=== PATIENT | female | born 1985 ===

== ENCOUNTER 2017-01-22 17:13 | Emergency (ER) | payer MEDICAID ==
[2017-01-22 17:17] VITALS: BMI 32.4
[2017-01-22 17:20] VITALS: RESP 18; TEMP 98.7
[2017-01-22] MEDS ORDERED: Sodium Chloride 0.9% 1,000 ML IV STA (17:40)
--- NOTE | 2017-01-22 17:47 | ED PDOC ---
Arrival/HPI - General Chief Complaint: Abdominal Pain Time Seen by Provider: 01/22/17 17:39 Historian: Patient - History of Present Illness Narrative History of Present Illness (Text): 01/22/17 17:42 A 31 year old female with no significant past medical history, presents to the emergency department with 1 day duration burning upper abdominal sensation, nausea, and mild dizziness. The patient states that the pain is non- radiating. She notes associated loose bowel movements twice yesterday and one today. The patient denies fevers, chills, headache,chest pain, shortness of breath, dypnea on exertion, vomiting, hematochezia, hematemesis, mucous in stool, urinary symptoms, back/neck pain, or any other complaints. PMD: Dr. Flavia Titpon Time/Duration: Other (Yesterday) Symptom Course: Unchanged Activities at Onset: Rest, Light Context: Home Past Medical History - Provider Review Nursing Documentation Reviewed: Yes - Infectious Disease Hx of Infectious Diseases: None - Psychiatric Hx Substance Use: No - Anesthesia Hx Anesthesia: No Family/Social History - Physician Review Nursing Documentation Reviewed: Yes Family/Social History: No Known Family HX Smoking Status: Never Smoked Hx Alcohol Use: Yes Frequency of alcohol use: Socially Hx Substance Use: No Allergies/Home Meds Allergies/Adverse Reactions: Allergies No Known Allergies Allergy (Verified 01/22/17 17:17) Home Medications: Home Meds Medication Instructions Recorded Confirmed No Known Home Med 01/22/17 01/22/17 Review of Systems - Physician Review All systems were reviewed & negative as marked: Yes - Review of Systems Constitutional: absent: Fevers, Night Sweats Respiratory: absent: SOB Cardiovascular: absent: Chest Pain, CHATTERJEE Gastrointestinal: Abdominal Pain (Upper abdominal burning sensation), Stool Changes (Loose bowel movements), Nausea. absent: Vomiting, Hematochezia, Hematemesis Genitourinary Female: absent: Hematuria Musculoskeletal: absent: Back Pain, Neck Pain Neurological: Dizziness (Mild dizziness). absent: Headache Physical Exam Vital Signs Reviewed: Yes Vital Signs Temp Pulse Resp BP Pulse Ox 01/22/17 17:19 98.7 F 81 18 120/83 96 Temperature: Afebrile Blood Pressure: Normal Pulse: Regular Respiratory Rate: Normal Appearance: Positive for: Well-Appearing, Non-Toxic, Comfortable Pain Distress: None Mental Status: Positive for: Alert and Oriented X 3 - Systems Exam Head: Present: Atraumatic, Normocephalic Pupils: Present: PERRL Extroacular Muscles: Present: EOMI Conjunctiva: Present: Normal Mouth: Present: Moist Mucous Membranes Neck: Present: Normal Range of Motion Respiratory/Chest: Present: Clear to Auscultation, Good Air Exchange. No: Respiratory Distress, Accessory Muscle Use Cardiovascular: Present: Regular Rate and Rhythm, Normal S1, S2. No: Murmurs Abdomen: Present: Normal Bowel Sounds. No: Tenderness, Distention, Peritoneal Signs Back: Present: Normal Inspection Upper Extremity: Present: Normal Inspection. No: Cyanosis, Edema Lower Extremity: Present: Normal Inspection. No: Edema Neurological: Present: GCS=15, CN II-XII Intact, Speech Normal Skin: Present: Warm, Dry, Normal Color. No: Rashes Psychiatric: Present: Alert, Oriented x 3, Normal Insight, Normal Concentration Medical Decision Making ED Course and Treatment: 01/22/17 17:49 Impression: A 31 year old female presents with epigastric burning sensation, nausea, and mild dizziness. Plan: -- Pepcid -- Reglan -- IV Fluids -- Reassess and disposition Progress Notes: 01/22/17 19:38 feel s better, nausea is abated. passed po challenge. serial bowel exams binegb and nt. will be discharged on pepcid prn, reglan prn / advised pmd f/u. - Medication Orders Current Medication Orders: Discontinued Medications Famotidine (Pepcid) 20 mg IVP STAT STA Stop: 01/22/17 17:42 Last Admin: 01/22/17 18:00 Dose: 20 mg IVP Administration Document 01/22/17 18:00 GMD (Rec: 01/22/17 18:00 GMD [id number]) Charges for Administration # of IVP Administrations 1 Sodium Chloride (Sodium Chloride 0.9%) 1,000 mls @ 999 mls/hr IV .Q1H1M STA Stop: 01/22/17 18:40 Last Admin: 01/22/17 18:04 Dose: 999 mls/hr eMAR Start Stop Document 01/22/17 18:04 GMD (Rec: 01/22/17 18:04 GMD [id number]) Intravenous Solution Start Date 01/22/17 Start Time 18:04 End Date 01/22/17 End time 19:05 Total Infusion Time 61 Metoclopramide HCl (Reglan) 10 mg IVPB STAT STA Stop: 01/22/17 17:42 Last Admin: 01/22/17 18:00 Dose: 10 mg eMAR Start Stop Document 01/22/17 18:00 GMD (Rec: 01/22/17 18:00 GMD [id number]) Intravenous Solution Start Date 01/22/17 Start Time 18:00 End Date 01/22/17 End time 18:02 Total Infusion Time 2 - Scribe Statement The provider has reviewed the documentation as recorded by the Scribe Dyan Roth Provider Scribe Attestation: All medical record entries made by the Scribe were at my direction and personally dictated by me. I have reviewed the chart and agree that the record accurately reflects my personal performance of the history, physical exam, medical decision making, and the department course for this patient. I have also personally directed, reviewed, and agree with the discharge instructions and disposition Disposition/Present on Arrival - Present on Arrival Any Indicators Present on Arrival: No History of DVT/PE: No History of Uncontrolled Diabetes: No Urinary Catheter: No History of Decub. Ulcer: No History Surgical Site Infection Following: None - Disposition Have Diagnosis and Disposition been Completed?: Yes Diagnosis: Gastritis Disposition: HOME/ ROUTINE Disposition Time: 19:40 Patient Plan: Discharge Condition: FAIR Discharge Instructions (ExitCare): Gastritis (DC) Print Language: [place] Additional Instructions: Eat a bland diet and advance your diet slowly. Commencing with lots of water, and fluids ( herbal teas such as peppermint, marcia and chamomile ). Eating foods likle brothy soups/bananas/cream of cereals/ papayas/apple suace/ toast avoid meat, dairy and dairy products, coffee, liquor, beer, spicy foods. Referrals: Geneva Tipton DO [Primary Care Provider] - Follow up with primary Forms: [employer] (French)
[2017-01-22 19:47] VITALS: BP 118/70; PULSE 76; O2SAT 98
== END 2017-01-22 20:05 | disposition home or self-care (01) ==
LOC: ED 17:13
DX: K29.70 Gastritis, unspecified, without bleeding (principal)
CPT/HCPCS: 96361; 96374; 96375; 99285; J2765; J7040

== ENCOUNTER 2017-06-06 12:26 | Emergency (ER) | payer MEDICAID ==
[2017-06-06 12:27] VITALS: BMI 32.4
[2017-06-06 12:42] VITALS: TEMP 97.6; O2SAT 100
--- NOTE | 2017-06-06 12:55 | ED PDOC ---
Arrival/HPI - General Chief Complaint: Abdominal Pain Time Seen by Provider: 06/06/17 12:45 - History of Present Illness Narrative History of Present Illness (Text): 06/06/17 12:53 Patient is a 32 y/o F with hx of painful menses, presenting with menstrual cramps. She reports that she is on day 2 of her menses. She reports that the pain got severe today so she presented to the ED. Denies taking anything for the pain. Describes the pain as a b/l suprapubic cramping. Reports nausea. Denies dysuria, fever, diarrhea/constipation, vomiting. Reports that she had a miscarriage 2 months ago and this is her first menstrual period since then. When questioned about this she reports that she took a home test in April that was positive but reports that she passed a clot in later April so assumed she had miscarried. Denies visiting any doctor. Reports that she became anxious today when the pain was severe but reports that has now resolved. Past Medical History - Infectious Disease Hx of Infectious Diseases: None - Genitourinary/Gynecological Hx Genitourinary Disorders: Yes Other/Comment: RECENT MISCARRIAGE - Psychiatric Hx Psychophysiologic Disorder: Yes Hx Anxiety: Yes Hx Substance Use: Yes (CANNABIS) - Anesthesia Hx Anesthesia: No Family/Social History Family/Social History: No Known Family HX Smoking Status: Never Smoked Hx Alcohol Use: Yes Frequency of alcohol use: Socially Hx Substance Use: Yes (CANNABIS) Allergies/Home Meds Allergies/Adverse Reactions: Allergies No Known Allergies Allergy (Verified 06/06/17 12:35) Home Medications: Home Meds Medication Instructions Recorded Confirmed Phentermine HCl 1 cap PO DAILY 06/06/17 06/06/17 Review of Systems - Physician Review All systems were reviewed & negative as marked: Yes - Review of Systems Constitutional: absent: Fatigue, Weight Change, Fevers Respiratory: absent: SOB, Cough, Sputum, Wheezing Cardiovascular: absent: Chest Pain, Palpitations, Edema, Calf Pain, CHATTERJEE, Orthopnea, Syncope Gastrointestinal: Abdominal Pain, Nausea. absent: Constipation, Diarrhea, Vomiting Genitourinary Female: Vaginal Bleeding. absent: Dysuria, Frequency, Hematuria, Urine Output Changes Skin: absent: Rash Neurological: absent: Headache, Dizziness Psychiatric: absent: Anxiety, Depression Physical Exam Vital Signs Temp Pulse Resp BP Pulse Ox 06/06/17 15:40 70 18 97/61 L 100 06/06/17 12:36 97.6 F 61 16 118/70 100 Temperature: Afebrile Blood Pressure: Normal Pulse: Regular Respiratory Rate: Normal Appearance: Positive for: Well-Appearing, Non-Toxic, Comfortable Pain Distress: None Mental Status: Positive for: Alert and Oriented X 3 - Systems Exam Head: Present: Atraumatic, Normocephalic Pupils: Present: PERRL Extroacular Muscles: Present: EOMI Conjunctiva: Present: Normal Mouth: Present: Moist Mucous Membranes Neck: Present: Normal Range of Motion Respiratory/Chest: Present: Clear to Auscultation, Good Air Exchange. No: Respiratory Distress, Accessory Muscle Use Cardiovascular: Present: Regular Rate and Rhythm, Normal S1, S2. No: Murmurs Abdomen: Present: Tenderness (mild suprapubic). No: Distention, Rebound, Guarding Back: Present: Normal Inspection. No: CVA Tenderness, Midline Tenderness Upper Extremity: Present: Normal Inspection Lower Extremity: Present: Normal Inspection Neurological: Present: GCS=15, CN II-XII Intact, Speech Normal Psychiatric: Present: Alert, Oriented x 3 Medical Decision Making ED Course and Treatment: 06/06/17 13:01 Patient's test is positive. Threatened vs ectopic . Transvaginal ultrasound already ordered and nurse instructed to take patient over immediately. Labs ordered. 06/06/17 15:23 FINDINGS: UTERUS: The uterus measures 8.4 x 4.3 x 5.2 cm. There is no uterine mass. The endometrium measures 5 mm in width. There is no intrauterine gestational sac seen. There is no endometrial fluid. CERVIX: Cervix is significant for a bilobed structure with complex fluid in the left side of the cervix, 1 portion of which contains low-level echoes in the other portion of which contains echogenic material as well as low-level echoes. It is not clear whether this represents a complex nabothian cyst or several adjacent complex nabothian cysts or whether this represents blood products within the left lateral aspect of the endocervical canal. RIGHT OVARY: Measures 2.0 x 1.8 x 1.7 cm. No mass. Normal flow. LEFT OVARY: Measures 2.1 x 1.4 x 2.0 cm. No mass. Normal flow. FREE FLUID: None. OTHER FINDINGS: None. IMPRESSION: No intrauterine gestational sac identified. Questionable blood products in the left lateral aspect of the endocervical canal versus complex nabothian cyst/ cysts. 06/06/17 15:23 UA shows nitrates and leukocytes but only 2-5 wbc. Likely contaminant from blood but due to symptoms, will treat 06/06/17 15:30 Blood type O+. Bhcg 700. Had detailed conversation with mother and patient about likelihood of incomplete miscarriage and need to ensure bhcg goes to 0. Will follow-up with [facility] operator. ON reevaluation, abdomen is soft nt/nd. - Lab Interpretations Lab Results: 06/06/17 13:19 06/06/17 13:19 Lab Results 06/06/17 13:19: Blood Type O POSITIVE, Antibody Screen Negative, BBK History Checked No verified bt 06/06/17 13:19: Beta HCG, Quant 711.91 H 06/06/17 13:19: Sodium 140, Potassium 4.1, Chloride 104, Carbon Dioxide 23, Anion Gap 17, BUN 12, Creatinine 1.0, Est GFR ( Amer) > 60, Est GFR (Non- Af Amer) > 60, Random Glucose 130 H, Calcium 10.0, Total Bilirubin 0.4, AST 24, ALT 39, Alkaline Phosphatase 62, Total Protein 8.1, Albumin 4.4, Globulin 3.7, Albumin/Globulin Ratio 1.2 06/06/17 13:19: WBC 14.5 H, RBC 4.15, Hgb 12.3, Hct 37.8, MCV 91.1, MCH 29.6, MCHC 32.5, RDW 12.9, Plt Count 302, MPV 10.8, Gran % 89.1 H, Lymph % (Auto) 6.8 L, Gosper % (Auto) 3.9, Eos % (Auto) 0.1 L, Baso % (Auto) 0.1, Gran # 12.92 H, Lymph # (Auto) 1.0 L, Gosper # (Auto) 0.6, Eos # (Auto) 0.0, Baso # (Auto) 0.01 06/06/17 13:00: Urine Color Red, Urine Appearance Bloody, Urine pH 6.0, Ur Specific B[place] >= 1.030, Urine Protein >=300 H, Urine Glucose (UA) Negative, Urine Ketones Trace H, Urine Blood Large H, Urine Nitrate Positive H, Urine Bilirubin Small H, Urine Urobilinogen 1.0 H, Ur Leukocyte Esterase Negative, Urine RBC Tntc, Urine WBC 0 - 2, Ur Epithelial Cells 0 - 2, Urine Bacteria Trace - RAD Interpretation Radiology Orders: 06/06/17 12:55 OB TRANSVAGINAL [US] Stat - Medication Orders Current Medication Orders: Discontinued Medications Sodium Chloride (Sodium Chloride 0.9%) 1,000 mls @ 999 mls/hr IV .Q1H1M STA Stop: 06/06/17 14:01 Last Admin: 06/06/17 13:26 Dose: 999 mls/hr eMAR Start Stop Document 06/06/17 13:26 GMD (Rec: 06/06/17 13:26 GMD [id number]) Intravenous Solution Start Date 06/06/17 Start Time 13:26 End Date 06/06/17 End time 14:27 Total Infusion Time 61 Disposition/Present on Arrival - Present on Arrival Any Indicators Present on Arrival: No History of DVT/PE: No History of Uncontrolled Diabetes: No Urinary Catheter: No History of Decub. Ulcer: No History Surgical Site Infection Following: None - Disposition Have Diagnosis and Disposition been Completed?: Yes Diagnosis: Incomplete miscarriage, UTI (urinary tract infection), Vaginal bleeding Disposition: HOME/ ROUTINE Disposition Time: 15:31 Patient Plan: Discharge Condition: GOOD Discharge Instructions (ExitCare): Urinary Tract Infections in Adults, Ectopic , Dealing With Miscarriage, Miscarriage (DC) Additional Instructions: Your bhcg level is 700. Your ultrasound is as below. This is concerning for incomplete miscarriage. Ectopic has not been ruled out. You need to get repeat bhcg level in 48 hours. You need to follow-up with your OB within 2 days. You need to return to ED immediately with any worsening symptoms. "FINDINGS: UTERUS: The uterus measures 8.4 x 4.3 x 5.2 cm. There is no uterine mass. The endometrium measures 5 mm in width. There is no intrauterine gestational sac seen. There is no endometrial fluid. CERVIX: Cervix is significant for a bilobed structure with complex fluid in the left side of the cervix, 1 portion of which contains low-level echoes in the other portion of which contains echogenic material as well as low-level echoes. It is not clear whether this represents a complex nabothian cyst or several adjacent complex nabothian cysts or whether this represents blood products within the left lateral aspect of the endocervical canal. RIGHT OVARY: Measures 2.0 x 1.8 x 1.7 cm. No mass. Normal flow. LEFT OVARY: Measures 2.1 x 1.4 x 2.0 cm. No mass. Normal flow. FREE FLUID: None. OTHER FINDINGS: None. IMPRESSION: No intrauterine gestational sac identified. Questionable blood products in the left lateral aspect of the endocervical canal versus complex nabothian cyst/ cysts" Prescriptions: Nitrofurantoin Macrocrystals [Macrobid] 100 mg PO BID #10 cap Referrals: Mattie Beth NP [Primary Care Provider] - Follow up with primary Forms: [employer] (Monegasque)
[2017-06-06] MEDS ORDERED: Sodium Chloride 0.9% 1,000 ML IV STA (13:01)
[2017-06-06 13:12] LABS: URINE BILIRUBIN SMALL (NEGATIVE); URINE BLOOD LARGE (NEGATIVE); URINE GLUCOSE (UA) NEGATIVE (NEGATIVE); URINE LEUKOCYTE ESTERASE NEGATIVE Leu/uL (NEGATIVE); URINE PROTEIN >=300 mg/dL (<30 mg/dL)
[2017-06-06 13:15] LABS: URINE APPEARANCE BLOODY (CLEAR); URINE COLOR RED (YELLOW)
[2017-06-06 13:16] LABS: URINE BACTERIA TRACE (NEG); URINE EPITHELIAL CELLS 0 - 2 /hpf (0-5); URINE RBC TNTC /hpf (0-2); URINE WBC 0 - 2 /hpf (0-6)
[2017-06-06 13:31] LABS: BASO # 0.01 K/mm3 (0.0-2.0); BASO % 0.1 % (0.0-3.0); EOS % 0.1 % (1.5-5.0); GRAN # 12.92 (1.4-6.5); GRAN % 89.1 % (50.0-68.0); HEMOGLOBIN 12.3 g/dL (12.0-16.0); LYMPH % 6.8 % (22.0-35.0); MEAN CELL VOLUME 91.1 fl (80.0-105.0); MEAN CORPUSCULAR HEMOGLOBIN 29.6 pg (25.0-35.0); MEAN CORPUSCULAR HGB CONC 32.5 g/dl (31.0-37.0); MEAN PLATELET VOLUME 10.8 fl (7.0-11.0); MONO # 0.6 (0.1-0.6); MONO % 3.9 % (1.0-6.0); RBC 4.15 10^6/uL (3.5-6.1); RED CELL DISTRIBUTION WIDTH 12.9 % (11.5-14.5); WHITE BLOOD COUNT 14.5 10^3/ul (4.5-11.0)
[2017-06-06 13:38] LABS: ALB/GLOB RATIO 1.2 (1.1-1.8); ALBUMIN 4.4 g/dL (3.0-4.8); ALT/SGPT 39 U/L (7-56); AST/SGOT 24 U/L (14-36); BLOOD UREA NITROGEN 12 mg/dL (7-21); GFR AFRICAN-AMERICAN > 60; GFR NON-AFRICAN AMERICAN > 60
--- NOTE | 2017-06-06 15:16 | US ---
PROCEDURE: OB Pelvic Ultrasound HISTORY: suprapubic pain COMPARISON: None available. FINDINGS: UTERUS: The uterus measures 8.4 x 4.3 x 5.2 cm. There is no uterine mass. The endometrium measures 5 mm in width. There is no intrauterine gestational sac seen. There is no endometrial fluid. CERVIX: Cervix is significant for a bilobed structure with complex fluid in the left side of the cervix, 1 portion of which contains low-level echoes in the other portion of which contains echogenic material as well as low-level echoes. It is not clear whether this represents a complex nabothian cyst or several adjacent complex nabothian cysts or whether this represents blood products within the left lateral aspect of the endocervical canal. RIGHT OVARY: Measures 2.0 x 1.8 x 1.7 cm. No mass. Normal flow. LEFT OVARY: Measures 2.1 x 1.4 x 2.0 cm. No mass. Normal flow. FREE FLUID: None. OTHER FINDINGS: None. IMPRESSION: No intrauterine gestational sac identified. Questionable blood products in the left lateral aspect of the endocervical canal versus complex nabothian cyst/cysts.
[2017-06-06 15:40] VITALS: BP 97/61; PULSE 70; RESP 18
== END 2017-06-06 15:46 | disposition home or self-care (01) ==
LOC: ED 12:26
DX: O03.4 Incomplete spontaneous abortion without complication (principal); O03.88 Urinary tract infection following complete or unspecified spontaneous abortion; O03.6 Delayed or excessive hemorrhage following complete or unspecified spontaneous abortion
CPT/HCPCS: 76817; 80053; 81001; 84702; 85025; 86850; 86900; 87086; 87181; 96360; 99285; J7040

== ENCOUNTER 2017-06-10 17:14 | Emergency (ER) | payer MEDICAID ==
[2017-06-10 17:15] VITALS: BMI 32.4
[2017-06-10 17:36] VITALS: TEMP 99.1
--- NOTE | 2017-06-10 18:20 | ED PDOC ---
Arrival/HPI - General Chief Complaint: Female Genitourinary Time Seen by Provider: 06/10/17 17:15 Historian: Patient - History of Present Illness Narrative History of Present Illness (Text): 06/10/17 18:16 32yo female with no PMhx who present to ED for repeat BHCG. Patient states she was here on 06/06/17 for threatened miscarriage and told to follow up with her PMD for a repeat BHCG, to show that the number is going down. States her PMD gave her appointment for next week so she came to ED. She states still having mild vaginal bleeding. Denies abdominal pain, dizziness, chest pain, SOB, nausea , vomiting, any other complaint. Past Medical History - Provider Review Nursing Documentation Reviewed: Yes - Infectious Disease Hx of Infectious Diseases: None - Reproductive Menopause: No - Genitourinary/Gynecological Hx Genitourinary Disorders: Yes Other/Comment: RECENT MISCARRIAGE - Psychiatric Hx Psychophysiologic Disorder: Yes Hx Anxiety: Yes Hx Substance Use: Yes (CANNABIS) - Anesthesia Hx Anesthesia: No Family/Social History - Physician Review Nursing Documentation Reviewed: Yes Family/Social History: Unknown Family HX Smoking Status: Never Smoked Hx Alcohol Use: Yes Hx Substance Use: Yes (CANNABIS) Allergies/Home Meds Allergies/Adverse Reactions: Allergies seasonal Allergy (Uncoded 06/10/17 17:37) CONGESTION Home Medications: Home Meds Medication Instructions Recorded Confirmed No Known Home Med 06/10/17 06/10/17 Review of Systems - Physician Review All systems were reviewed & negative as marked: Yes - Review of Systems Constitutional: Normal Eyes: Normal ENT: Normal Respiratory: Normal Cardiovascular: Normal Gastrointestinal: Normal Genitourinary Female: Vaginal Bleeding, Other (Repeat BHCG) Musculoskeletal: Normal Skin: Normal Neurological: Normal Endocrine: Normal Hemo/Lymphatic: Normal Psychiatric: Normal Physical Exam Vital Signs Reviewed: Yes Vital Signs Temp Pulse Resp BP Pulse Ox 06/10/17 19:19 74 17 118/80 100 06/10/17 17:31 99.1 F 76 18 112/78 99 Temperature: Afebrile Blood Pressure: Normal Pulse: Regular Respiratory Rate: Normal Appearance: Positive for: Well-Appearing, Non-Toxic, Comfortable Pain Distress: None Mental Status: Positive for: Alert and Oriented X 3 - Systems Exam Head: Present: Atraumatic, Normocephalic Pupils: Present: PERRL Extroacular Muscles: Present: EOMI Conjunctiva: Present: Normal Mouth: Present: Moist Mucous Membranes Neck: Present: Normal Range of Motion Respiratory/Chest: Present: Clear to Auscultation, Good Air Exchange. No: Respiratory Distress, Accessory Muscle Use Cardiovascular: Present: Regular Rate and Rhythm, Normal S1, S2. No: Murmurs Abdomen: Present: Normal Bowel Sounds. No: Tenderness, Distention, Peritoneal Signs Back: Present: Normal Inspection Upper Extremity: Present: Normal Inspection. No: Cyanosis, Edema Lower Extremity: Present: Normal Inspection. No: Edema Neurological: Present: GCS=15, CN II-XII Intact, Speech Normal Skin: Present: Warm, Dry, Normal Color. No: Rashes Psychiatric: Present: Alert, Oriented x 3, Normal Insight, Normal Concentration Medical Decision Making ED Course and Treatment: 06/10/17 20:11 Pt in ED for stated history. BHCG was 47.08, compare to 711.91 from 06/06/17 Result was DW the pt. she have appointment with her OB on 06/12/17 and was advised to keep hjer appointment. - Lab Interpretations Lab Results: Lab Results 06/10/17 18:07: Beta HCG, Quant 47.09 H Disposition/Present on Arrival - Present on Arrival Any Indicators Present on Arrival: No History of DVT/PE: No History of Uncontrolled Diabetes: No Urinary Catheter: No History of Decub. Ulcer: No History Surgical Site Infection Following: None - Disposition Have Diagnosis and Disposition been Completed?: Yes Diagnosis: Threatened Disposition: HOME/ ROUTINE Disposition Time: 19:10 Patient Plan: Discharge Condition: STABLE Discharge Instructions (ExitCare): Threatened Miscarriage Additional Instructions: Follow up with your OB Return to ED for any new or worsening symptoms Referrals: [employer] Robert Graham, [Primary Care Provider] - Follow up with primary Gricelda Montilla MD [Staff Provider] - Follow up with primary Forms: [employer] (Chadian)
[2017-06-10 19:20] VITALS: BP 118/80; PULSE 74; RESP 17; O2SAT 100
== END 2017-06-10 19:20 | disposition home or self-care (01) ==
LOC: ED 17:14
DX: O20.0 Threatened abortion (principal)